=== PATIENT | female | born 1945 | race Caucasian/White ===

== ENCOUNTER 2017-05-16 18:25 | Inpatient (IN) | payer SELFPAY ==
[~2017-05-16] VITALS: Ht 144.8 cm; Wt 70.3 kg
[2017-05-16 18:31] VITALS: BP 164/99
--- NOTE | 2017-05-16 18:40 | NUR ---
PATIENT PRESENTS TO ED WITH C/O RIGHT FOOT PAIN X22 DAYS; PT HAS A BLACK LESION FOR THE PAST 22 DAYS, PT TREATED WITH BACTRIM AND KEFLEX; ANTIOBIOTICS COMPLETED FRIDAY AND PT STATES NO IMPROVEMENT. HX DM, HTN . PATIENT STATES PAIN OF 7/10 AT THIS TIME; VSS; ER MD MADE AWARE OF PT STATUS.
--- NOTE | 2017-05-16 18:48 | NUR ---
Patient being evaluated by physician at bedside.
--- NOTE | 2017-05-16 19:45 | NUR ---
Pt sitting in chair. C/o pain to right leg 08/19. Agree with prior assessment with no changes.
[2017-05-16 20:04] LABS: HEMATOCRIT 31.5 % (36-48); HEMOGLOBIN 10.4 g/dL (12.0-16.0); MEAN CORPUSCULAR HEMOGLOBIN 30 pg (27-31); MEAN CORPUSCULAR HGB CONC 33 g/dL (33-37); MEAN CORPUSCULAR VOLUME 89.8 fL (80-94); PLATELET COUNT (AUTO) 363 K/uL (140-450); RED BLOOD CELL COUNT(AUTO) 3.51 MIL/uL (4.20-5.40); RED CELL DISTRIBUTION WIDTH 13.1 % (11.6-13.7); WHITE BLOOD COUNT (AUTO) 9.5 K/uL (4.8-10.8)
[2017-05-16 20:29] LABS: EOSINOPHILS % (MANUAL) 30 % (0-4); LYMPHOCYTES % (MANUAL) 37 % (20-46); MONOCYTES % (MANUAL) 5 % (5-12)
[2017-05-16 20:44] LABS: ALBUMIN 3.6 g/dL (3.4-5.0); ANION GAP 13.3 (8-16); ASPARTATE AMINOTRANSFERASE 12 U/L (15-37); CARBON DIOXIDE 25.3 mmol/L (21-32); CHLORIDE 109 mmol/L (98-107); CREATININE 1.2 mg/dL (0.6-1.3); GLUCOSE 203 mg/dL (74-106); POTASSIUM 5.6 mmol/L (3.5-5.1); SODIUM SERUM 142 mmol/L (136-145); TOTAL BILIRUBIN 0.1 mg/dL (0.0-1.0); UREA NITROGEN, BLOOD 42 mg/dL (7-18)
[2017-05-16] MEDS ORDERED: PIPERACILLIN/TAZOBACTAM 3.375 GM in DEXTROSE 5% 50 ML IV ONE (20:45)
[2017-05-16] MEDS ORDERED: NACL 0.9% 1,000 ML IV ONE (20:45)
[2017-05-16] MEDS ORDERED: PIPERACILLIN/TAZOBACTAM 3.375 GM VIAL IV ONE (20:57)
--- NOTE | 2017-05-16 20:57 | NUR ---
PT PENDING ADMIT-PT TO ER BED 1
[2017-05-16] MEDS ORDERED: ACETAMINOPHEN 325 MG TAB PO PRN (21:05)
[2017-05-16] MEDS ORDERED: SODIUM POLYSTYRENE 15 GM/60 ML UDBTL PO ONE (21:05)
[2017-05-16] MEDS ORDERED: ONDANSETRON 4 MG/2 ML VIAL IVP PRN (21:05)
[2017-05-16] MEDS ORDERED: HYDROcodone/APAP 7.5/325 MG 1 TAB PO PRN (21:05)
[2017-05-16] MEDS ORDERED: GLU500 PO (21:35)
[2017-05-16] MEDS ORDERED: ENAL20TA89 PO (21:35)
[2017-05-16] MEDS ORDERED: insulin (21:35)
[2017-05-16] MEDS ORDERED: NOVN SUBQ (21:37)
--- NOTE | 2017-05-16 21:50 | NUR ---
Patient will be admitted to care of DR. CORDERO. Admited to TELE. Will go to room 120B. Belongings list completed. Report to JORGE MARIN.
[2017-05-16 21:55] VITALS: BP 170/66
--- NOTE | 2017-05-16 21:55 | NUR ---
PATIENT ADMITTED TO THE UNIT FROM ER. PATIENT IS AWAKE, ALERT AND ORIENTED. AMBULATORY. MAURITANIAN SPEAKING. DAUGHTER IS PRESENT AT BEDSIDE AND SPEAKS OCCITAN. NO SIGNS AND SYMPTOMS OF DISTRESS NOTED. NO COMPLAINTS OF PAIN AT THIS TIME. IV SITE NOTED ON LEFT AC, SALINE LOCKED. SMALL 0.8CM ESCHAR NOTED ON RIGHT FOOT. PLAN OF CARE DISCUSSED WITH PATIENT AND FAMILY. VERBALIZED UNDERSTANDING. BED IN LOWEST POSITION, SIDE RAILS UP AND CALL LIGHT WITHIN REACH. WILL CONTINUE TO MONITOR.
[2017-05-16 22:23] LABS: CHOL/HDL RATIO 4.8 (1-4.5); FREE T4 (FREE THYROXINE) 0.83 ng/dL (0.76-1.46); MAGNESIUM 2.2 mg/dL (1.8-2.4); PHOSPHORUS 3.8 mg/dL (2.5-4.9); THYROID STIMULATING HORMONE 0.93 uIU/mL (0.34-3.74)
[2017-05-16] MEDS ORDERED: DEXTROSE 50% 50 ML SYR IVP PRN (22:25)
[2017-05-16] MEDS ORDERED: INSULIN LISPRO SLIDING SCALE 100 UNITS/ML VIAL SUBQ PRN (22:25)
[2017-05-16] MEDS ORDERED: ENALAPRIL 10 MG TAB PO SCH (23:00)
[2017-05-16] MEDS: NACL 0.9% 1,000 ML IV SCH (23:00)
[2017-05-16] MEDS ORDERED: CLINDAMYCIN 600 MG/4 ML VIAL ONE (23:29)
[2017-05-16] MEDS: CLINDAMYCIN 300 MG in DEXTROSE 5% 50 ML IV SCH (23:34)
[2017-05-17] VITALS: BP 156/70
[2017-05-17 00:05] LABS: APPEARANCE,URINE CLEAR (CLEAR); BILIRUBIN,URINE NEGATIVE (NEGATIVE); BLOOD, URINE NEGATIVE (NEGATIVE); COLOR,URINE YELLOW (YELLOW); LEUKOCYTE ESTERASE ,URINE 1+ (NEGATIVE); NITRITE, URINE NEGATIVE (NEGATIVE); UGLUCOSE TRACE (NEGATIVE)
[2017-05-17 00:30] LABS: RBC,URINE 0-5 (RARE) /HPF (0-5)
--- NOTE | 2017-05-17 00:30 | NUR ---
CHECKED ON PATIENT. PATIENT IS ASLEEP. NO SIGNS AND SYMPTOMS OF DISTRESS NOTED. BREATHING EVEN AND UNLABORED. WILL CONTINUE TO MONITOR.
--- NOTE | 2017-05-17 02:00 | NUR ---
CHECKED ON PATIENT. PATIENT IS ASLEEP. NO SIGNS AND SYMPTOMS OF DISTRESS NOTED. BREATHING EVEN AND UNLABORED. WILL CONTINUE TO MONITOR.
[2017-05-17 05:00] VITALS: BP 165/71
[2017-05-17] MEDS ORDERED: CLINDAMYCIN 600 MG/4 ML VIAL ONE (05:02)
[2017-05-17] MEDS: CLINDAMYCIN 300 MG in DEXTROSE 5% 50 ML IV SCH ×3 (05:06→18:52)
[2017-05-17] MEDS: NACL 0.9% 1,000 ML IV SCH ×2 (06:36→14:09)
[2017-05-17] MEDS: BLOOD GLUCOSE MONITORING 1 DEV DEV FS SCH ×3 (06:36→16:30)
--- NOTE | 2017-05-17 07:00 | NUR ---
PATIENT HAS BEEN SCREENED AND CATEGORIZED HIGH NUTRITION RISK. PATIENT WILL BE SEEN WITHIN 1-2 DAYS OF ADMISSION. 05/16/17-05/17/17 JOSE QUINTANA MS, RDN
--- NOTE | 2017-05-17 07:25 | NUR ---
PATIENT REPORT GIVEN TO MORNING NURSE AT BEDSIDE FOR CONTINUITY OF CARE. PATIENT IS IN STABLE CONDITION.
--- NOTE | 2017-05-17 07:30 | NUR ---
RECEIVED PT ON BED AAOX4. NO SOB NOTED. NO C/O PAIN AT THIS TIME. IV TO LT AC PATENT AND INTACT. CHEST CLEAR. ABDOMEN SOFT, BOWEL SOUNDS PRESENT. SMALL SWELLING ON RT FOOT, ELEVATED WITH PILLOW. INSTRUCTED PT TO CALL FOR ASSISTANCE, CALL LIGHT WITHIN REACH, VERBALIZED UNDERSTANDING.
[2017-05-17 07:41] LABS: BASOPHILS % (AUTO) 0.5 % (0.0-2.0); EOSINOPHILS # (AUTO) 1.5 K/uL (0-0.4); EOSINOPHILS % (AUTO) 18.9 % (0.0-4.0); HEMATOCRIT 28.7 % (36-48); HEMOGLOBIN 9.6 g/dL (12.0-16.0); LYMPHOCYTES # (AUTO) 2.9 K/uL (2.5-16.5); LYMPHOCYTES % (AUTO) 36.7 % (20.5-51.1); MEAN CORPUSCULAR HEMOGLOBIN 30 pg (27-31); MEAN CORPUSCULAR HGB CONC 33 g/dL (33-37); MEAN CORPUSCULAR VOLUME 89.3 fL (80-94); MONOCYTES # (AUTO) 0.5 K/uL (0.8-1.0); MONOCYTES % (AUTO) 6.5 % (1.7-9.3); NEUTROPHILS % (AUTO) 37.4 % (42.2-75.2); PLATELET COUNT (AUTO) 308 K/uL (140-450); RED BLOOD CELL COUNT(AUTO) 3.22 MIL/uL (4.20-5.40); RED CELL DISTRIBUTION WIDTH 13.2 % (11.6-13.7)
[2017-05-17 07:48] LABS: ANION GAP 13.9 (8-16); CARBON DIOXIDE 24.7 mmol/L (21-32); CHLORIDE 111 mmol/L (98-107); CREATININE 0.9 mg/dL (0.6-1.3); GLUCOSE 135 mg/dL (74-106); POTASSIUM 4.6 mmol/L (3.5-5.1); SODIUM SERUM 145 mmol/L (136-145); UREA NITROGEN, BLOOD 32 mg/dL (7-18)
[2017-05-17 08:00] VITALS: BP 181/82
[2017-05-17 08:05] LABS: MAGNESIUM 1.9 mg/dL (1.8-2.4); PHOSPHORUS 4.2 mg/dL (2.5-4.9)
[2017-05-17] MEDS: ENALAPRIL 10 MG TAB PO SCH ×2 (08:29→16:57)
[2017-05-17] MEDS ORDERED: DOCUSATE SODIUM 100 MG GELCAP PO SCH (09:00)
[2017-05-17] MEDS ORDERED: LACTOBACILLUS RHAMNOSUS GG 1 EACH CAP PO SCH (09:00)
[2017-05-17] MEDS ORDERED: metFORMIN 500 MG TAB PO SCH (09:00)
[2017-05-17] MEDS ORDERED: INSULIN NPH HUMAN ISOPHANE 100 UNIT/ML VIAL SUBQ SCH (09:00)
[2017-05-17] MEDS ORDERED: ATORVASTATIN 20 MG TAB PO SCH (09:00)
[2017-05-17] MEDS ORDERED: CALCIUM CARB/VIT-D 500 MG/200 IU 1 TAB PO SCH ×2 (09:59→10:00)
[2017-05-17] MEDS ORDERED: LEVOFLOXACIN 500 MG/D5W PREMIX 100 ML IV SCH (10:00)
--- NOTE | 2017-05-17 10:20 | NUR ---
05/17/17 RD INITIAL ASSESSMENT COMPLETED PLEASE REFER TO NUTRITION ASSESSMENT UNDER CARE ACTIVITY FOR ESTIMATED NUTRITIONAL NEEDS. RD RECOMMENDATIONS: 1. CONTINUE ON CCHO 60 GM DIET TOLERATED. 2. RECOMMEND THERAGRAN, VIT C, ZINC, AND PROSOURCE 1 PKT QD FOR WOUND HEALING SUPPORT. 3. CONSULT RDN PRN. 4. RD WILL F/U 2-3 DAYS; HIGH RISK. 5. RDN PROVIDED DIABETIC DIET EDUCATION TO PATIENT AND FAMILY; PT AND FAMILY ACCEPTED DIABETIC DIET EDUCATION. JOSE QUINTANA, , RDN
--- NOTE | 2017-05-17 11:05 | NUR ---
PT AWAKE. NO SOB NOTED. NO COMPLAINTS MADE. ENDORSED TO [place] FOR CONTINUITY OF CARE.
--- NOTE | 2017-05-17 11:05 | NUR ---
RECEIVED REPORT FROM [facility] NURSE THANG AT BEDSIDE. PATIENT IS ALERT AND ORIENTED X3. NO COMPLAINTS OF PAIN AT THIS TIME. PATIENT FAMILY MEMBERS AT BEDSIDE. PATIENT HAS IV ON LEFT AC 20 G FLOWING NACL 125 ML/HR. PATIENT SHOWS NO SIGNS OF RESPIRATORY DISTRESS OR RESPIRATORY DEPRESSION. UPDATED PATIENT BOARD AND PUT CALL LIGHT WITHIN REACH. WILL CONTINUE TO MONITOR PATIENT.
[2017-05-17 12:00] VITALS: BP 174/70
--- NOTE | 2017-05-17 12:00 | NUR ---
PATIENT VITAL SIGNS ARE ELEVATED AT 174/70, 69. PATIENT IS ASYMPTOMATIC. DOCTOR IS AWARE. AWAITING ORDERS.
[2017-05-17] MEDS ORDERED: INUL1CTB PO (12:10)
[2017-05-17] MEDS ORDERED: CLIN300C2 PO (12:10)
[2017-05-17] MEDS ORDERED: ASCORBIC ACID 500 MG TAB PO SCH (13:07)
[2017-05-17] MEDS ORDERED: MULTIVITAMIN 1 TAB PO SCH (13:08)
[2017-05-17] MEDS ORDERED: ZINC SULF 220 MG CAP PO SCH (13:09)
--- NOTE | 2017-05-17 13:17 | NUR ---
USED BLUE TELEPHONE TO HELP TRANSLATE PATIENT'S PROCEDURE TO PATIENT IN [facility]. PATIENT VERBALIZED UNDERSTANDING OF THE PROCEDURE. DRAWER WAXER ROSARIO #[id number] HELPED TRANSLATE. PATIENT SIGNED IN APPROPRIATE SPOT. WILL FOLLOW UP WITH DOCTOR.
--- NOTE | 2017-05-17 14:14 | NUR ---
PATIENT FAMILY MEMBERS AT BEDSIDE. PATIENT SHOWS NO SIGNS OF RESPIRATORY DISTRESS. WILL CONTINUE TO MONITOR PATIENT.
[2017-05-17] MEDS ORDERED: CALC-846 PO (15:32)
[2017-05-17] MEDS ORDERED: NITR100C7 PO (15:32)
[2017-05-17] MEDS ORDERED: VITC500 PO (15:32)
[2017-05-17] MEDS ORDERED: ATOR20TA40 PO (15:32)
[2017-05-17] MEDS ORDERED: ZIN220 PO (15:32)
[2017-05-17 16:00] VITALS: BP 166/75
[2017-05-17] MEDS ORDERED: ENALAPRIL 10 MG TAB PO SCH (16:40)
--- NOTE | 2017-05-17 16:40 | NUR ---
PATIENT LAYING IN HIGH FOWLERS POSITION WITH PATIENT FAMILY MEMBER AT BEDSIDE. PATIENT HAS NO COMPLAINTS OF PAIN. NO SIGNS OF RESPIRATORY DISTRESS. WILL CONTINUE TO MONITOR PATIENT.
--- NOTE | 2017-05-17 16:58 | NUR ---
GAVE 20 MG VASOTEC TO PATIENT PER DR'S ORDER. WILL RECHECK PATIENT'S BLOOD PRESSURE.
--- NOTE | 2017-05-17 18:00 | NUR ---
PER DR'S ORDER, WAITING ON DISCHARGE UNTIL PATIENT'S BLOOD PRESSURE DECREASES. PATIENT'S SYSTOLIC BLOOD PRESSURE REMAINS GREATER THAN 160 MMHG.
--- NOTE | 2017-05-17 18:59 | NUR ---
PATIENT'S BLOOD PRESSURE READS 155/56, 73. WILL REPORT MY FINDINGS TO NEXT SHIFT NURSE.
--- NOTE | 2017-05-17 19:13 | NUR ---
GAVE REPORT TO NIGHTSHIFT NURSE AT BEDSIDE. PATIENT IN STABLE CONDITION.
--- NOTE | 2017-05-17 19:20 | NUR ---
RECEIVED REPORT FROM DAY SHIFT, PATIENT RESTING IN BED, AWAKE ALERT ORIENTED X4, FAMILY AT THE BEDSIDE. PER DAY SHIFT, PATIENT WILL BE DISCHARGED TONIGHT, AND ALL THE DISCHARGE INSTRUCTIONS ARE PROVIDED. CONCILIATOR CAME TODAY AND DID DEBRIDEMENT AT BEDSIDE, BUT PICTURE WAS NOT TAKEN. DRESSING ON FOOT DRY AND INTACT, PICTURE IS UNABLE TO TAKE AT THIS TIME. CHARGE NURSE IS AWARE. CALL LIGHT WITHIN REACH, SAFETY MEASURE ENSURED, WILL CONTINUE TO MONITOR.
--- NOTE | 2017-05-17 20:27 | NUR ---
BP 183/67, HR 75, MADE DR. MCKNIGHT AWARE. CAME AND EXAMINED THE PATIENT AT THE BEDSIDE. DR. MCKNIGHT SAID," THE PATIENT CAN GO HOME, HR SBP IS HIGH BUT SHE ASYMPTOMATIC, JUST NEED TO FOLLOW UP WITH THE PRIMARY DOCTOR." WILL D/C THE PATIENT ORDERED.
--- NOTE | 2017-05-17 20:35 | NUR ---
INFORMED THE DAUGHTER AND PATIENT THAT DR. MCKNIGHT SAID IT OKAY TO GO HOME TONIGHT. INFORMED THE DAUGHTER AND PATIENT TO FOLLOW UP WITH THE RATE SUPERVISOR AFTER DISCHARGE REGARDING THE BLOOD PRESSURE WITHIN 7DAYS. PATIENT AND DAUGHTER VERBALIZED UNDERSTANDING.
--- NOTE | 2017-05-17 20:50 | NUR ---
ALL THE DISCHARGE INSTRUCTIONS PROVIDED, AND EDUCATION GIVEN, PATIENT AND DAUGHTER VERBALIZED UNDERSTANDING, PATIENT IS DISCHARGED WITH RESPONSIBLE ADULT, PATIENT LEFT UNIT VIA WHEEL CHAIR. NO S/S OF DISTRESS, IN STABLE CONDITION.
[2017-05-18] MEDS ORDERED: ASCORBIC ACID 500 MG TAB PO SCH (09:00)
[2017-05-18] MEDS ORDERED: CLINICAL MONITORING MC SCH (09:00)
[2017-05-18] MEDS ORDERED: CALCIUM CARB/VIT-D 500 MG/200 IU 1 TAB PO SCH (09:00)
[2017-05-18] MEDS ORDERED: MULTIVITAMIN 1 TAB PO SCH (09:00)
[2017-05-18] MEDS ORDERED: ZINC SULF 220 MG CAP PO SCH (09:00)
[2017-05-18 09:06] LABS: TRANSFERRIN 223 mg/dL (200-370)
--- NOTE | 2017-05-19 08:23 | NUR ---
WOUND CARE EVALUATION NOT DONE. PT. DISCHARGED.
[2017-05-20 07:35] LABS: FERRITIN 68 ng/mL (15-150); FOLIC ACID > 20.00 ng/mL (>3.0)
== END 2017-05-17 21:15 | disposition home or self-care (01) | DRG 623 ==
LOC: MED 18:25 → MTU 21:08
PROVIDERS: ADMIT Student in an Organized Health Care Education/Training Program; ATTEND Student in an Organized Health Care Education/Training Program
PROC: 0JBR0ZZ Excision of Left Foot Subcutaneous Tissue and Fascia, Open Approach (ICD-10-PCS; principal; 2017-05-17)
DX: E11.621 Type 2 diabetes mellitus with foot ulcer (principal); N39.0 Urinary tract infection, site not specified; L97.529 Non-pressure chronic ulcer of other part of left foot with unspecified severity; N17.0 Acute kidney failure with tubular necrosis; E87.5 Hyperkalemia; I10 Essential (primary) hypertension; E83.51 Hypocalcemia; D64.9 Anemia, unspecified; I16.0 Hypertensive urgency; E78.5 Hyperlipidemia, unspecified; E11.21 Type 2 diabetes mellitus with diabetic nephropathy; E11.65 Type 2 diabetes mellitus with hyperglycemia; Z79.899 Other long term (current) drug therapy; Z79.4 Long term (current) use of insulin
CPT/HCPCS: 36415; 71045; 73630; 80048; 80053; 81001; 82150; 82607; 82728; 82746; 82948; 83036; 83540; 83605; 83690; 83735; 83880; 84100; 84439; 84443; 84484; 85025; 85045; 85610; 85730; 87040; 87081; 87086; 93925; 93970; 96365; 99285; J1956; J2543; J3490; J7030; J7060; Q0092